=== PATIENT | male | born 1965 | race Caucasian/White ===

== ENCOUNTER 2024-02-10 08:13 | Outpatient (CLI) | payer OTHER | END 2024-02-10 08:14 | disposition home or self-care (01) | LOC: MADRAD 08:13 | PROVIDERS: ATTEND Chiropractor | DX: M47.817 Spondylosis without myelopathy or radiculopathy, lumbosacral region (principal); M47.816 Spondylosis without myelopathy or radiculopathy, lumbar region | CPT/HCPCS: 72100 ==